=== PATIENT | female | born 1960 | race American Indian/Alaskan Native ===

== ENCOUNTER 2017-04-06 08:33 | Outpatient (CLI) | payer OTHER ==
--- NOTE | 2017-04-06 09:44 | XRay Report ---
LEFT KNEE, 3 views: History: Left knee pain. The bony architecture is intact without evidence of fracture or dislocation. Mild joint space narrowing and spurring is identified in the medial compartment and patellofemoral space. Minimal tibial spine spurring. No significant soft tissue abnormality is seen. IMPRESSION: Mild osteoarthritis.
== END 2017-04-06 08:34 | disposition home or self-care (01) ==
LOC: SPVIMAG 08:33
PROVIDERS: ATTEND Internal Medicine
DX: M17.12 Unilateral primary osteoarthritis, left knee (principal); M25.862 Other specified joint disorders, left knee

== ENCOUNTER 2018-08-13 13:11 | Outpatient (CLI) | payer BC ==
--- NOTE | 2018-08-13 14:14 | Mammography Report ---
BILATERAL DIGITAL SCREENING MAMMOGRAM with CAD : 08/13/18 13:11:00 CLINICAL: Routine screening. COMPARISON:03/01/15 FINDINGS: The breasts are heterogeneously dense, which may obscure small masses.A left retroareolar biopsy clip. No mass, architectural distortion or suspicious calcifications. IMPRESSION: No mammographic evidence of malignancy. BI-RADS CATEGORY: 2 -- Benign RECOMMENDATION: Routine mammographic screening in one year.
== END 2018-08-13 13:12 | disposition home or self-care (01) ==
LOC: SPVWC 13:11
PROVIDERS: ATTEND Internal Medicine
DX: Z12.31 Encounter for screening mammogram for malignant neoplasm of breast (principal)
CPT/HCPCS: 77067

== ENCOUNTER 2020-04-04 15:24 | Outpatient (CLI) | payer BC ==
--- NOTE | 2020-04-05 09:36 | Mammography Report ---
DIGITAL SCREENING MAMMOGRAM WITH CAD, 04/05/2020 CLINICAL INFORMATION / INDICATION: Routine screening mammography. TECHNIQUE: Digital bilateral 2D mammography was obtained in the craniocaudal and mediolateral obliqu e projections. This examination was interpreted with the benefit of Computer-Aided Detection analysis . COMPARISON: 08/13/2018, 03/01/2015 FINDINGS: Breast Density: The breasts are heterogeneously dense, which may obscure small masses. No dominant mass, suspicious calcifications, or architectural distortion in either breast. Bilateral benign calcifications are unchanged. Right breast post surgical changes are again noted. A left breast biopsy clip is unchanged. No other significant interval changes. IMPRESSION: No mammographic evidence of malignancy. Follow up recommendation: Routine yearly BI-RADS Category 2: Benign. A "normal" or negative report should not discourage follow up or biopsy of a clinically significant f inding. A written summary of these findings will be mailed to the patient. The patient will be entered into a mammography reporting system which will generate a reminder letter for the patient's next appointmen t at the appropriate interval. The [employer] recommends yearly mammograms starting at age 40 and continuing as l tammy as a woman is in good health. Breast MRI is recommended for women with an approximate 20-25% or greater lifetime risk of breast cancer, including women with a strong family history of breast or ova oralia cancer or who have been treated for Hodgkin's disease. Signer Name: Armond Villegas MD Signed: 04/05/2020 9:31 AM Workstation Name: [id number]
== END 2020-04-04 15:25 | disposition home or self-care (01) ==
LOC: SPVWC 15:24
PROVIDERS: ATTEND Internal Medicine
DX: Z12.31 Encounter for screening mammogram for malignant neoplasm of breast (principal); N64.89 Other specified disorders of breast; Z98.890 Other specified postprocedural states
CPT/HCPCS: 77067

== ENCOUNTER 2021-10-07 08:42 | Outpatient (CLI) | payer BC ==
--- NOTE | 2021-10-08 14:59 | Mammography Report ---
DIGITAL SCREENING MAMMOGRAM WITH CAD, 10/07/2021 CLINICAL INFORMATION / INDICATION: Routine screening mammography. TECHNIQUE: Digital bilateral 2D mammography was obtained in the craniocaudal and mediolateral obliqu e projections. This examination was interpreted with the benefit of Computer-Aided Detection analysis . COMPARISON: 03/25/2020, 08/13/2018 FINDINGS: Breast Density: The breasts are heterogeneously dense, which may obscure small masses. No dominant mass, suspicious calcifications, or architectural distortion in either breast. Post-surgical changes are again noted in the right breast. There is a biopsy marker in the left breas t. Overall, there has been no significant interval change. IMPRESSION: No mammographic evidence of malignancy. Follow up recommendation: Routine yearly screening mammogram. BI-RADS Category 2: BENIGN. A "normal" or negative report should not discourage follow up or biopsy of a clinically significant f inding. A written summary of these findings will be mailed to the patient. The patient will be entered into a mammography reporting system which will generate a reminder letter for the patient's next appointmen t at the appropriate interval. The [employer] recommends yearly mammograms starting at age 40 and continuing as l tammy as a woman is in good health. Breast MRI is recommended for women with an approximate 20-25% or greater lifetime risk of breast cancer, including women with a strong family history of breast or ova oralia cancer or who have been treated for Hodgkin's disease. Signer Name: Susan Pereira MD Signed: 10/08/2021 2:54 PM Workstation Name: [email or web address]
== END 2021-10-07 08:43 | disposition home or self-care (01) ==
LOC: MAMMO 08:42
PROVIDERS: ATTEND Internal Medicine
DX: Z12.31 Encounter for screening mammogram for malignant neoplasm of breast (principal)
CPT/HCPCS: 77067